=== PATIENT | female | born 1995 | race American Indian/Alaskan Native ===

== ENCOUNTER 2021-08-15 12:23 | Outpatient (CLI) | payer MEDICAID ==
[2021-08-15 12:55] VITALS: BP 114/65
== END 2021-08-15 15:36 | disposition home or self-care (01) ==
LOC: TRG 12:23 → APU 12:24 → TRG 15:36
PROVIDERS: ATTEND Obstetrics & Gynecology
DX: Z34.93 Encounter for supervision of normal pregnancy, unspecified, third trimester (principal); Z3A.38 38 weeks gestation of pregnancy
CPT/HCPCS: 36415; 59025; 84112

== ENCOUNTER 2021-08-18 09:23 | Inpatient (IN) | payer MEDICAID ==
--- NOTE | 2021-08-18 07:53 | History and Physical Report ---
History of Present Illness Date of examination: 08/18/21 Chief complaint: scheduled section, tubal ligation History of present illness: Pt is a 26 year old -Stateless female SLIME 08/24/21 at 39w1d who presents for scheduled section and tubal ligation secondary to previous x 3 and undesired fertility. She reports irregular contractions and denies vaginal bleeding or leakage of fluid. She has had care at [facility] since transfer into care at 15 wks with comanagement by [facility] secondary to morbid obesity, three prior sections, COVID 19 this , GERD prescribed omeprazole, genital herpes without lesion or prodrome, and undesired fertility. She is GBS positive. Past History Past Medical History: GERD, other (obesity ) Past Surgical History: section (2014, 2016, 2018 ) [employer] History: herpes Family/Genetic History: diabetes, heart disease, cancer Social history: no significant social history - Obstetrical History Expected Date of Delivery: 08/24/21 Actual Gestation: 39 Week(s) 1 Day(s) : 6 Para: 3 Hx # Term Pregnancies: 3 Number of Pregnancies: 0 Spontaneous Abortions: 2 Induced : 0 Number of Living Children: 3 Medications and Allergies Allergies Allergy/AdvReac Type Severity Reaction Status Date / Time No Known Allergies Allergy Unverified 12/18/14 05:08 Home Medications Medication Instructions Recorded Confirmed Last Taken Type Ferrous Sulfate [Feosol 325 MG tab] 325 mg PO BID #60 tablet 01/20/15 Unknown Rx Ferrous Sulfate [Feosol 325 MG tab] 325 mg PO BID #60 tablet 05/27/19 Unknown Rx Ibuprofen [Motrin] 800 mg PO Q8HR PRN #30 tablet 05/27/19 Unknown Rx oxyCODONE /ACETAMINOPHEN [Percocet 1 tab PO Q6HR PRN #40 tablet 05/27/19 Unknown Rx 5/325] Review of Systems All systems: negative - Physical Exam Breasts: Positive: deferred Abdomen: Positive: soft (obese, gravid ) Uterus: Positive: enlarged (gravid ) Extremities: Positive: edema (trace) - Obstetrical FHR: auscultation normal Uterine Contraction Monitor Mode: External Uterine Contraction Pattern: Irregular Uterine Tone Measurement Phase: Resting Results All other labs normal. Assessment and Plan A: IUP at 39w1d Previous x 3 Morbid Obesity GERD Genital Herpes without lesion or prodrome Undesired Fertility- consent signed and on chart GBS Positive P: Routine admission labs Proceed with repeat section, bilateral tubal ligation and other indicated procedures
[~2021-08-18 09:23] MED LIST: BICITRA ORAL LIQD 30ML PO NR; FAMOTIDINE 20 MG/2 ML INJ IV NR; LACTATED RINGERS 1,000 ML IV SCH; METOCLOPRAMIDE 10 MG/2 ML INJ IV NR; OXYTOCIN DRIP 30 UNITS/500 ML BAG IV SCH; ceFAZolin/Water 2 GM/20 ML 2 GM/20 ML SYRINGE IV NR
[2021-08-18 11:14] LABS: Basophils % (Auto) 0.4 % (0.0-1.8); Eosinophils % (Auto) 0.3 % (0.0-4.3); Hematocrit 35.9 % (30.3-42.9); Hemoglobin 11.6 gm/dl (10.1-14.3); Lymphocytes # (Auto) 1.8 K/mm3 (1.2-5.4); Lymphocytes % (Auto) 39.8 % (13.4-35.0); Mean Corpuscular HGB Conc 32 % (30-34); Mean Corpuscular Volume 90 fl (79-97); Monocytes # (Auto) 0.4 K/mm3 (0.0-0.8); Monocytes % (Auto) 9.1 % (0.0-7.3); Platelet Count 245 K/mm3 (140-440); Red Cell Distribution Width 13.9 % (13.2-15.2)
--- NOTE | 2021-08-18 12:08 | Anesthesia Day of Surgery ---
Anesthesia Day of Surgery - Day of Surgery Patient Examined: Yes Patient H&P Reviewed: Yes Patient is NPO: Yes
--- NOTE | 2021-08-18 12:11 | Anesthesia Consultation ---
Anesthesia Consult and Med Hx Date of service: 08/18/21 - Airway Anesthetic Teeth Evaluation: Poor ROM Head & Neck: Adequate Mental/Hyoid Distance: Adequate Mallampati Class: Class II Intubation Access Assessment: Probably Good - Pulmonary Exam CTA: Yes - Cardiac Exam Anesthetic Concerns: csectionx 3 no anesthesia complications - Pre-Operative Health Status ASA Pre-Surgery Classification: ASA2 Proposed Anesthetic Plan: Spinal - Pulmonary Hx Smoking: No Hx Asthma: No Hx Respiratory Symptoms: No SOB: No COPD: No Home Oxygen Therapy: No Hx Pneumonia: No Hx Sleep Apnea: No - Cardiovascular System Hx Hypertension: No Hx Coronary Artery Disease: No Hx Heart Attack/AMI: No - Central Nervous System Hx Neuromuscular Disorder: No Hx Seizures: No CVA: No Hx Back Pain: No Hx Psychiatric Problems: No - Gastrointestinal Hx Ulcer: No Hx Gastroesophageal Reflux Disease: No - Endocrine Hx Renal Disease: No Hx End Stage Renal Disease: No Hx Cirrhosis: No Hx Liver Disease: No Hx Insulin Dependent Diabetes: No Hx Non-Insulin Dependent Diabetes: No Hx Thyroid Disease: No Hx Hypothyroidism: No Hx Hyperthyroidism: No - Hematic Hx Anemia: No Hx Sickle Cell Disease: No - Other Systems Hx Alcohol Use: No Hx Substance Use: No Hx Cancer: No Hx Obesity: Yes
[2021-08-18] MEDS ORDERED: CARBOPROST TROMETHAMINE 250 MCG/1 ML INJ IM ONE (12:32)
[2021-08-18] MEDS ORDERED: METHYLERGONOVINE MALEATE 0.2 MG/ML VIAL IM ONE (12:32)
[2021-08-18] MEDS ORDERED: PHENYLEPHRINE/NS 1,000 MCG/10 ML SYRINGE (OR USE) IV ONE (13:09)
[2021-08-18] MEDS ORDERED: ONDANSETRON 4 MG/2 ML INJ ONE ×2 (13:09→17:34)
[2021-08-18] MEDS ORDERED: BUPIVACAINE/PF (0.25%) 2.5 MG/ML 30 ML VIAL INFILTRATI ONE ×2 (14:02)
[2021-08-18] MEDS ORDERED: LACTATED RINGERS 2,000 ML ONE (14:02)
[2021-08-18] MEDS ORDERED: HYDROmorphone 1 MG/1 ML INJ ONE ×2 (15:09)
--- NOTE | 2021-08-18 15:39 | Operative Report ---
Operative Report Operative Report: Date of procedure: August 18, 2021 Preoperative diagnosis: 1) IUP at 39w1d 2) Previous x 3 3) Undesired Fertility 4) Obesity Postoperative diagnosis: Same 5) Uterine Atony Procedure: 1) Repeat classical section 2) Bilateral tubal ligation via Filshie clip method Surgeon: Johana Gonzalez M.D. Anesthesia: Regional Findings: 1) Viable female , Apgars 8 and 9, weight 2810g, (6lb 3oz) in cephalic presentation 2) Dense adhesions of the bladder to the lower uterine segment 3) Normal appearing uterus ovaries and tubes Estimated blood loss: 1061 mL by QBL Urine output: 700 mL, clear but concentrated prior to the procedure, and at the end of the procedure Drains: Eddy to gravity Specimens: None Complications: Counts correct x 3 Disposition: Stable to PACU Indication for procedure: Pt is a 26 year old at 39w1d with three prior sections who presents for scheduled section and bilateral tubal ligation. Operation in Detail: After the risks, benefits, alternatives and complications were explained to the patient she gave informed consent for the procedure. She was subsequently taken to the operating room where regional anesthesia was noted to be adequate. SCDs were noted to be in place and functioning. She was then placed in the dorsal supine position with leftward tilt and prepped and draped in a normal sterile fashion. heart tones were noted prior to incision. A timeout was performed. A Pfannenstiel skin incision was made with the knife and carried down to the layer of the fascia with the Bovie. The fascia was incised in the midline and the fascial incision was extended bilaterally with the Bovie. The fascial incision was then stretched. The rectus muscles were then in the midline and partially transected for adequate visualization. The peritoneum was then entered sharply between two Madeline clamps. The peritoneal incision was then stretched. The vesicouterine peritoneum was noted to be densely adherent to the lower uterine segment. An incision was made with a knife in the active segment of the uterus in a curvilinear fashion. The hysterotomy was stretched. Amniotomy was performed with egress of clear fluid. The head was delivered without difficulty followed by delivery of the shoulders and body. was bulb suctioned at delivery. The cord was clamped and cut and the was handed to NICU staff in attendance. Cord blood was collected. The placenta was then delivered manually. The uterus was exteriorized and cleared of all clots and debris. The hysterotomy was then reapproximated in two layers with 0 Monocryl in a running locked fashion. Additional figure of eights of 0 Monocryl and 2-0 chromic were used to obtain hemostasis. The hysterotomy was inspected and hemostasis was noted. Intermittent atony was noted- Methergine 0.2 mg IM was administered with improvement in uterine tone. Attention was then turned to the tubal ligation. The left tube was identified, grasped with a yoli and followed out to the fimbriae. Two Filshie clips were placed across the ampullary portion of the fallopian tube. The right tube was then identified, followed out to the fimbriae and two Filshie clips were placed across the ampullary region of the tube. Hemostasis was noted. The gutters were irrigated and cleared of all clots and debris. The hysterotomy was again inspected and noted to be hemostatic. Surgicel was placed over the hysterotomy. The uterus was returned to the peritoneal cavity. The peritoneum was reapproximated with 0 Monocryl in a running fashion incorporating the rectus muscles. Additional figure of eights were used to reapproximate the rectus muscles. Surgicel was placed over the rectus muscles. The fascia was reapproximated with 0-Vicryl in a running fashion. At this time, the patient began to experience more discomfort and asked the case be ended. The skin was reapproximated with michael. The incision was then covered with a pressure dressing. The procedure was then ended. The patient tolerated the procedure well and was taken to the PACU in stable condition. All instrument, lap, and needle counts were correct 3.
--- NOTE | 2021-08-18 15:39 | Procedure Note ---
OB Delivery Note - Delivery Date of Delivery: 08/18/21 Surgeon: NGA LINK Estimated blood loss: other (1161 mL) - Section Preop diagnosis: repeat , desires sterilization Postop diagnosis: same section procedure: section, repeat low transverse, bilateral tubal ligation Disposition: PACU Complications: uterine atony Narrative: Please see operative report - A at 1 minute: 8 at 5 minutes: 9 Infant Gender: Female (2810g (6lb 3oz) @ 1351 pm)
--- NOTE | 2021-08-18 15:46 | Progress Note ---
Spinal Anesthesia Block - Spinal Anesthesia Block Start Time: 12:56 Stop Time: 13:00 Performed by:: JELANI HOANG Procedure: Patient IDed, H&P reviewed, all questions and concerns were answered, and consent was signed. Timeout was performed at bedside. Patient in sitting position. Sterile prep and drape was performed. [3] ml of 1% lidocaine skin wheal at L[3]- L [4]. Needle introducer advanced. 25 gauge spinal needle advanced. Clear, free flowing CSF. negative blood, negative paresthesia. Spinal dose given. All needles removed. Patient tolerated procedure.
--- NOTE | 2021-08-18 17:29 | Post Anesthesia Evaluation ---
- Post Anesthesia Evaluation Patient Participated: Yes Airway Patent: Yes Stable Respiratory Function: Yes Nausea/Vomiting: No Temp > 96.8F: Yes Pain Manageable: Yes Adequeate Hydration: Yes Anesthesia Complications: No Block Receding Appropriately: Yes Patient on Ventilator: No
[2021-08-18] MEDS: HYDROmorphone 1 MG/1 ML INJ IV PRN (17:31)
[2021-08-18] MEDS ORDERED: SIMETHICONE 80 MG CHEW TAB PO PRN (18:46)
[2021-08-18] MEDS ORDERED: ONDANSETRON 4 MG/2 ML INJ IV PRN (18:46)
[2021-08-18] MEDS ORDERED: LANOLIN/ZINC/DIMETHICONE (LANSINOH) 7 GM TP PRN (18:46)
[2021-08-18] MEDS ORDERED: WITCH HAZEL/ GLYCERIN PAD TP PRN (18:46)
[2021-08-18] MEDS ORDERED: NALOXONE 0.4 MG/1 ML INJ IV PRN (18:46)
[2021-08-18] MEDS ORDERED: D5W/LACTATED RINGERS 1,000 ML IV SCH (19:00)
[2021-08-18] MEDS ORDERED: OXYTOCIN DRIP 30 UNITS/500 ML BAG IV SCH (19:00)
[2021-08-18] MEDS: KETOROLAC 30 MG/1 ML INJ IV SCH (20:03)
[2021-08-18] MEDS: ceFAZolin/NS 1 GM/50 ML 1 GM/50 ML BAG IV SCH (20:03)
[2021-08-19] MEDS: HYDROmorphone 1 MG/1 ML INJ IV PRN (00:29)
[2021-08-19] MEDS: KETOROLAC 30 MG/1 ML INJ IV SCH ×3 (02:40→17:45)
[2021-08-19] MEDS: ceFAZolin/NS 1 GM/50 ML 1 GM/50 ML BAG IV SCH (02:41)
[2021-08-19] MEDS: oxyCODONE /ACETAMINOPHEN 5-325MG TAB PO PRN ×4 (05:56→20:43)
[2021-08-19 07:22] LABS: Hematocrit 28.5 % (30.3-42.9); Hemoglobin 9.2 gm/dl (10.1-14.3)
[2021-08-19] MEDS: FERROUS SULFATE 325 MG TAB PO SCH (10:32)
[2021-08-19] MEDS ORDERED: MEASLES, MUMPS & RUBELLA 12,500 UNIT/0.5 ML VACCINE SUB-Q ONE (18:34)
[2021-08-19] MEDS ORDERED: TETANUS,DIPH,PERTUSS(ACELL) VACCINE 0.5 ML SYRINGE IM ONE (18:34)
[2021-08-20] MEDS: oxyCODONE /ACETAMINOPHEN 5-325MG TAB PO PRN ×2 (00:22→09:08)
[2021-08-20] MEDS: IBUPROFEN 800 MG TAB PO PRN ×2 (04:22→10:44)
[2021-08-20] MEDS: FERROUS SULFATE 325 MG TAB PO SCH (10:44)
--- NOTE | 2021-08-20 14:59 | Discharge Summary ---
Providers - Providers Date of Admission: 08/18/21 09:23 Date of discharge: 08/20/21 Attending physician: NGA LINK 08/18/21 18:46 Consult to Design Chief [CONS] Routine Reason For Exam: Primary care physician: NGA LINK Hospitalization Reason for admission: section Delivery: Procedure: repeat low transverse Incision: normal, intact, dressed Other procedures: none Discharge diagnosis: IUP at term delivered [place] baby: female Condition at discharge: Good Disposition: 01 HOME / SELF CARE / HOMELESS Plan - Discharge Medications Prescriptions: Ferrous Sulfate [Feosol 325 MG tab] 325 mg PO BID #60 tablet Ibuprofen [Motrin] 800 mg PO Q8HR PRN #40 tablet PRN Reason: Pain, Mild (1-3) oxyCODONE /ACETAMINOPHEN [Percocet 5/325] 2 tab PO Q6HR PRN #40 tablet PRN Reason: Pain - Provider Discharge Summary Activity: routine, no sex for 6 weeks, no heavy lifting 4 weeks, no strenuous exercise Diet: routine Instructions: routine Additional instructions: [] Smoking cessation referral if applicable(refer to patient education folder for contact #) [] Refer to [facility] Booklet Call your doctor immediately for: * Fever > 100.5 * Heavy vaginal bleeding ( >1 pad per hour) * Severe persistent headache * Shortness of breath * Reddened, hot, painful area to leg or breast * Drainage or odor from incision. * Keep incision clean and dry at all times and follow doctor's instructions regarding bathing/showering - Follow up plan Follow up: NGA LINK MD [Primary Care Provider] - 14 Days
[2021-08-20 18:12] VITALS: BP 101/65
== END 2021-08-20 17:50 | disposition home or self-care (01) | DRG 765 ==
LOC: APU 09:23 → OB 17:58
PROVIDERS: ADMIT Obstetrics & Gynecology; ATTEND Obstetrics & Gynecology
PROC: 10D00Z1 Extraction of Products of Conception, Low, Open Approach (ICD-10-PCS; principal; 2021-08-18)
PROC: 0UL70CZ Occlusion of Bilateral Fallopian Tubes with Extraluminal Device, Open Approach (ICD-10-PCS; 2021-08-18)
DX: O99.62 Diseases of the digestive system complicating childbirth (principal); O98.32 Other infections with a predominantly sexual mode of transmission complicating childbirth; Z37.0 Single live birth; A60.00 Herpesviral infection of urogenital system, unspecified; Z3A.39 39 weeks gestation of pregnancy; O99.824 Streptococcus B carrier state complicating childbirth; K21.9 Gastro-esophageal reflux disease without esophagitis; O99.214 Obesity complicating childbirth; E66.01 Morbid (severe) obesity due to excess calories; O34.211 Maternal care for low transverse scar from previous cesarean delivery; O62.2 Other uterine inertia; O99.892 Other specified diseases and conditions complicating childbirth; N73.6 Female pelvic peritoneal adhesions (postinfective); Z30.2 Encounter for sterilization
CPT/HCPCS: 36415; 85014; 85018; 85025; 86592; 86850; 86900; 86901; G0378; J3490; J7060; J7121; J0690; J1170; J1885; J2370; J2405; J2765; J7120; U0003

== ENCOUNTER 2021-09-30 08:29 | Emergency (ER) | payer MEDICAID ==
[2021-09-30 08:43] VITALS: BP 119/74
[2021-09-30] MEDS ORDERED: KETOROLAC 10 MG TAB PO ONE (08:51)
--- NOTE | 2021-09-30 09:15 | Emergency Department Report ---
ED Abdominal Pain HPI - General Chief Complaint: Abdominal Pain Stated Complaint: LEFT SIDE ABDOMINAL PAIN X3DAYS Time Seen by Provider: 09/30/21 08:37 Source: patient Mode of arrival: Ambulatory Limitations: No Limitations - History of Present Illness Initial Comments: 26-year-old female with no past medical history presents to the emergency department for evaluation of left upper abdomen pain. She states that she only has pain when she moves around or leans to the other side. She denies injury but states that she had a on August 19, 2021. She denies bleeding or drainage from incision. She denies fever, nausea, vomiting, diarrhea, and dysuria. She states that she is here currently on antibiotics from her INSULATOR TESTER for treatment of infection to incision. MD Complaint: abdominal pain -: Gradual, days(s) (3) Location: [facility]Q Radiation: none Migration to: no migration Severity scale (0 -10): 7 (Only when she moves or leans to the side) Quality: aching Consistency: intermittent Worsens With: movement Associated Symptoms: denies: nausea, vomiting, diarrhea, fever, chills, dysuria, hematemesis, hematochezia, melena, hematuria, anorexia - Related Data LMP Date: 09/30/21 Previous Rx's Medication Instructions Recorded Last Taken Type Ferrous Sulfate [Feosol 325 MG tab] 325 mg PO BID #60 tablet 01/20/15 Unknown Rx Ferrous Sulfate [Feosol 325 MG tab] 325 mg PO BID #60 tablet 05/27/19 Unknown Rx Ibuprofen [Motrin] 800 mg PO Q8HR PRN #30 tablet 05/27/19 Unknown Rx oxyCODONE /ACETAMINOPHEN [Percocet 1 tab PO Q6HR PRN #40 tablet 05/27/19 Unknown Rx 5/325] Ferrous Sulfate [Feosol 325 MG tab] 325 mg PO BID #60 tablet 08/19/21 Unknown Rx Ibuprofen [Motrin] 800 mg PO Q8HR PRN #40 tablet 08/19/21 Unknown Rx oxyCODONE /ACETAMINOPHEN [Percocet 2 tab PO Q6HR PRN #40 tablet 08/19/21 Unknown Rx 5/325] Allergies Allergy/AdvReac Type Severity Reaction Status Date / Time No Known Allergies Allergy Verified 08/18/21 10:15 ED Review of Systems ROS: Stated complaint: LEFT SIDE ABDOMINAL PAIN X3DAYS Other details as noted in HPI Comment: All other systems reviewed and negative Constitutional: denies: chills, diaphoresis, fever Eyes: denies: eye pain ENT: denies: ear pain Respiratory: denies: cough, shortness of breath Cardiovascular: denies: chest pain, palpitations Endocrine: no symptoms reported Gastrointestinal: abdominal pain. denies: nausea, vomiting, diarrhea, hematemesis, melena, hematochezia Genitourinary: denies: urgency, dysuria, frequency, hematuria Musculoskeletal: denies: back pain, joint swelling Skin: denies: rash, lesions Neurological: denies: headache, weakness, numbness Psychiatric: denies: anxiety Hematological/Lymphatic: denies: easy bleeding, easy bruising ED Past Medical Hx - Past Medical History Hx Hypertension: No Hx Heart Attack/AMI: No Hx Congestive Heart Failure: No Hx Diabetes: No Hx Deep Vein Thrombosis: No Hx Liver Disease: No Hx Renal Disease: No Hx Sickle Cell Disease: No Hx Seizures: No Hx Asthma: No Hx COPD: No Hx HIV: No - Social History Smoking Status: Former Smoker - Medications Home Medications: Home Medications Medication Instructions Recorded Confirmed Last Taken Type Ferrous Sulfate [Feosol 325 MG tab] 325 mg PO BID #60 tablet 01/20/15 Unknown Rx Ferrous Sulfate [Feosol 325 MG tab] 325 mg PO BID #60 tablet 05/27/19 Unknown Rx Ibuprofen [Motrin] 800 mg PO Q8HR PRN #30 tablet 05/27/19 Unknown Rx oxyCODONE /ACETAMINOPHEN [Percocet 1 tab PO Q6HR PRN #40 tablet 05/27/19 Unknown Rx 5/325] Ferrous Sulfate [Feosol 325 MG tab] 325 mg PO BID #60 tablet 08/19/21 Unknown Rx Ibuprofen [Motrin] 800 mg PO Q8HR PRN #40 tablet 08/19/21 Unknown Rx oxyCODONE /ACETAMINOPHEN [Percocet 2 tab PO Q6HR PRN #40 tablet 08/19/21 Unknown Rx 5/325] ED Physical Exam - General Limitations: No Limitations General appearance: alert, in no apparent distress - Head Head exam: Present: atraumatic, normocephalic - Eye Eye exam: Present: normal appearance. Absent: conjunctival injection - Neck Neck exam: Present: normal inspection - Respiratory Respiratory exam: Present: normal lung sounds bilaterally. Absent: respiratory distress, wheezes, rales, rhonchi, stridor, chest wall tenderness, accessory muscle use - Cardiovascular Cardiovascular Exam: Present: regular rate, normal heart sounds. Absent: irregular rhythm - GI/Abdominal GI/Abdominal exam: Present: soft, tenderness (Left upper quadrant), normal bowel sounds. Absent: distended, guarding, rebound, rigid - Extremities Exam Extremities exam: Present: normal inspection - Back Exam Back exam: Present: normal inspection. Absent: tenderness, CVA tenderness (R), CVA tenderness (L) - Neurological Exam Neurological exam: Present: alert, oriented X3 - Psychiatric Psychiatric exam: Present: normal affect, normal mood - Skin Skin exam: Present: warm, dry, intact, normal color, other ( incision site well approximated, no drainage noted, no erythema or edema noted.) ED Course Vital Signs 09/30/21 08:40 Temperature 98 F Pulse Rate 80 Respiratory 16 Rate Blood Pressure 119/74 [Left] O2 Sat by Pulse 100 Oximetry ED Medical Decision Making - Radiology Data Radiology results: report reviewed, image reviewed KUB IMPRESSION: 1. No radiographic evidence of acute intra-abdominal process. - Medical Decision Making 26-year-old female with no past medical history presents to the emergency department for evaluation of left upper abdomen pain. She states that she only has pain when she moves around or leans to the other side. She denies injury but states that she had a on August 19, 2021. She denies bleeding or drainage from incision. She denies fever, nausea, vomiting, diarrhea, and dysuria. She states that she is here currently on antibiotics from her INSULATOR TESTER for treatment of infection to incision. Abdominal x-ray without any acute abnormalities. Patient was advised to use Tylenol or Motrin as needed for pain and follow-up with INSULATOR TESTER or primary care for further evaluation or worsening symptoms. She verbalized understanding of and agreement with plan of care. Critical care attestation.: If time is entered above; I have spent that time in minutes in the direct care of this critically ill patient, excluding procedure time. ED Disposition Clinical Impression: Abdominal muscle pain Disposition: HOME / SELF CARE / HOMELESS Is pt being admited?: No Does the pt Need Aspirin: No Condition: Stable Instructions: Musculoskeletal Pain, Abdominal Pain (ED) Additional Instructions: Take Tylenol and ibuprofen as needed for pain. Drink plenty of noncaffeinated fluids. Follow-up with [facility] or primary care provider if no improvement or worsening symptoms. Referrals: PRIMARY CAREMD [Primary Care Provider] - 3-5 Days KI PECK MD [Referring] - 3-5 Days Time of Disposition: 09:38
--- NOTE | 2021-09-30 09:26 | XRay Report ---
ABDOMEN 1 VIEW, 09/30/2021 INDICATION / CLINICAL INFORMATION: Left upper quadrant pain COMPARISON: No relevant prior studies are available for comparison. FINDINGS: TUBES / LINES: None. BOWEL GAS PATTERN: The bowel gas pattern appears nonobstructive. ADDITIONAL FINDINGS: No significant additional findings. IMPRESSION: 1. No radiographic evidence of acute intra-abdominal process. Signer Name: June Mei MD Signed: 09/30/2021 9:22 AM Workstation Name: [email or web address]
== END 2021-09-30 09:56 | disposition home or self-care (01) ==
LOC: ED 08:29
DX: R10.12 Left upper quadrant pain (principal); Z87.891 Personal history of nicotine dependence
CPT/HCPCS: 74018; 99283